=== PATIENT | male | born 1960 | race Caucasian/White ===

== ENCOUNTER 2017-02-07 17:22 | Emergency (ER) | payer OTHER ==
[~2017-02-07] VITALS: Ht 177.8 cm; Wt 183.7 kg
[~2017-02-07 17:22] MED LIST: ASPI81TA2 PO; ATEN-41 PO; ATOR40TA68 PO; BACL10TA PO; CEPH-568 PO; CLON1TAB4 PO; FAMO40TA7 PO; HALO50CR2 TP; HYDR-1189 PO; HYDR25TA4 PO; LEVO88TA5 PO; LORA-259 PO; METH750T3 PO; PARO-41 PO; TRIA15CR2 TP; [UNRECOGNIZED DRUG - CODE] PO; [UNRECOGNIZED DRUG - CODE] TP
[2017-02-07 17:45] VITALS: BP_SYST 138
[2017-02-07 18:31] LABS: BASOPHILS # (AUTO) 0.1 K/uL (0.0-0.2); BASOPHILS % (AUTO) 0.5 % (0.0-2.0); EOSINOPHILS # (AUTO) 0.3 K/uL (0.0-0.4); EOSINOPHILS % (AUTO) 2.5 % (0.0-4.0); HEMOGLOBIN 12.1 g/dL (14.0-18.0); LYMPHOCYTES # (AUTO) 1.5 K/uL (1.0-5.5); MEAN CORPUSCULAR HEMOGLOBIN 27 pg (27-31); MEAN CORPUSCULAR HGB CONC 33 % (32-36); MEAN CORPUSCULAR VOLUME 81 fL (79.0-98.0); MONOCYTES # (AUTO) 0.9 K/uL (0.0-1.0); MONOCYTES % (AUTO) 8.1 % (1.7-9.3); NEUTROPHILS # (AUTO) 7.9 K/uL (1.8-7.7); NEUTROPHILS % (AUTO) 74.9 % (40.0-70.0); PLATELET COUNT (AUTO) 275 K/uL (130-430); RED BLOOD CELL COUNT(AUTO) 4.57 MIL/uL (4.2-6.2); RED CELL DISTRIBUTION WIDTH 17.3 % (9.0-15.0); WHITE BLOOD COUNT (AUTO) 10.8 K/uL (4.8-10.8)
[2017-02-07 18:49] LABS: CALCIUM 8.6 mg/dL (8.4-11.0); CREATININE 0.9 mg/dL (0.55-1.30); POTASSIUM 3.8 mmol/L (3.5-5.1)
[2017-02-07 18:53] LABS: PROTHROMBIN TIME 10.5 SECS (9.5-12.5)
[2017-02-07 18:54] LABS: ALBUMIN 2.9 g/dL (3.4-4.8); TOTAL BILIRUBIN 0.5 mg/dL (0.0-1.0)
[2017-02-07] MEDS ORDERED: PARO40TA45 PO (21:00)
[2017-02-07 21:15] VITALS: BP_SYST 130
== END 2017-02-07 21:15 | disposition home or self-care (01) ==
LOC: SED 17:22
DX: S83.91XA Sprain of unspecified site of right knee, initial encounter (principal); S90.32XA Contusion of left foot, initial encounter; M54.5 Low back pain; R03.0 Elevated blood-pressure reading, without diagnosis of hypertension; F41.9 Anxiety disorder, unspecified; Z88.1 Allergy status to other antibiotic agents; Z88.2 Allergy status to sulfonamides; Z79.899 Other long term (current) drug therapy; W10.8XXA Fall (on) (from) other stairs and steps, initial encounter; Y93.01 Activity, walking, marching and hiking; Y92.098 Other place in other non-institutional residence as the place of occurrence of the external cause; Y99.8 Other external cause status
CPT/HCPCS: 36415; 71010; 72110; 73560-TC; 80053; 83605; 84484; 85025; 85610-TC; 85730-TC; 87040-TC; 93005; 99285

== ENCOUNTER 2017-03-10 17:56 | Emergency (ER) | payer OTHER ==
[~2017-03-10] VITALS: Ht 180.3 cm; Wt 180.5 kg
[~2017-03-10 17:56] MED LIST changes: -CEPH-568 PO; -LORA-259 PO; -PARO-41 PO; +PARO40TA45 PO; -[UNRECOGNIZED DRUG - CODE] TP
--- NOTE | 2017-03-10 17:56 | NUR ---
Arrived via [facility] ambulance, initially, at 1715, he had 10/10 crushing non-provoked chest pain with radiation to bilat neck. He took NTG x 2 at home. He did not initailly have any relief. On arrival on EMS his BP was 70/30, he was responsive. By the time he arrived to ED his pain was improved to 2/10. Placed in room 8 . Placed on cardiac rehabilitation program director, blood pressure machine and pulse oximeter. To gown for exam. Side rails up. Report given to Melinda MOSS. Addendum: 03/10/17 at 1852 by OBDULIO Patient recieved ASA 162mg PO enroute to [facility].
[2017-03-10 18:00] VITALS: BP_SYST 114
[2017-03-10 18:33] LABS: BASOPHILS # (AUTO) 0.1 K/uL (0.0-0.2); BASOPHILS % (AUTO) 0.5 % (0.0-2.0); EOSINOPHILS # (AUTO) 0.1 K/uL (0.0-0.4); EOSINOPHILS % (AUTO) 0.7 % (0.0-4.0); HEMATOCRIT 44.1 % (36-54); HEMOGLOBIN 14.4 g/dL (14.0-18.0); LYMPHOCYTES # (AUTO) 4.3 K/uL (1.0-5.5); LYMPHOCYTES % (AUTO) 23.5 % (20.5-51.5); MEAN CORPUSCULAR HEMOGLOBIN 26 pg (27-31); MEAN CORPUSCULAR HGB CONC 33 % (32-36); MEAN CORPUSCULAR VOLUME 80 fL (79.0-98.0); MONOCYTES # (AUTO) 1.4 K/uL (0.0-1.0); MONOCYTES % (AUTO) 7.5 % (1.7-9.3); NEUTROPHILS # (AUTO) 12.5 K/uL (1.8-7.7); NEUTROPHILS % (AUTO) 67.8 % (40.0-70.0); PLATELET COUNT (AUTO) 346 K/uL (130-430); RED BLOOD CELL COUNT(AUTO) 5.54 MIL/uL (4.2-6.2); RED CELL DISTRIBUTION WIDTH 17.6 % (9.0-15.0); WHITE BLOOD COUNT (AUTO) 18.4 K/uL (4.8-10.8)
--- NOTE | 2017-03-10 18:34 | NUR ---
ER Dr. La at bedside examining patient.
[2017-03-10 18:45] LABS: CALCIUM 9.3 mg/dL (8.4-11.0); CREATININE 1.06 mg/dL (0.55-1.30); POTASSIUM 3.6 mmol/L (3.5-5.1)
[2017-03-10 18:49] LABS: ALBUMIN 3.2 g/dL (3.4-4.8); TOTAL BILIRUBIN 0.8 mg/dL (0.0-1.0)
[2017-03-10 18:55] LABS: INR 1.2 (0.80-1.20); PROTHROMBIN TIME 11.7 SECS (9.5-12.5)
--- NOTE | 2017-03-10 19:05 | NUR ---
Recieved report from Sunil MOSS. Will assume care at this time. Patient denies CP at this time. Respirations even and unlabored. Upon assessment BP 112/60; HR 74. IV Patent. Will continue to monitor.
--- NOTE | 2017-03-10 19:20 | NUR ---
Radiology at bedside for CXR.
[2017-03-10] MEDS: MORPHINE 2 MG/ML INJ. SYRINGE IVP ONE (20:05)
--- NOTE | 2017-03-10 20:15 | NUR ---
Patient responded adversly to administration of 2mg morphine IVP. Patient demonstrates bradycardia. C/O N/V. Respirations labored. Skin diaphoretic. Patient SpO2 97% on room air. Patient placed on 2L via nasal cannula. ED MD Zuniga made aware. At bedside assessing patient. 1mg Narcan IVP to be ordered.
[2017-03-10] MEDS: NALOXONE HCL 2 MG/2 ML SYR (NARCAN) IVP ONE (20:21)
[2017-03-10] MEDS ORDERED: NALOXONE HCL 2 MG/2 ML SYR ONE (20:21)
[2017-03-10] MEDS: NITROGLYCERIN LINGUAL 400 mCg/SPRAY TL ONE (20:30)
--- NOTE | 2017-03-10 20:30 | NUR ---
Patient responded well to narcan administration. No acute distress noted at this time. Respirations even and unlabored. Skin warm, dry and pink. Verbalizes no complaints at this time.
--- NOTE | 2017-03-10 22:30 | NUR ---
Patient resting quietly. Respirations even and unlabored. No signs of respiratory distress noted at this time. Denies CP. Verbalizes no complaints.
[2017-03-10 23:00] VITALS: BP_SYST 125
--- NOTE | 2017-03-10 23:00 | NUR ---
Patient to be transferred to [facility]. Is being transferred due to higher level of care. Receiving facility has accepting physician and available space. ER physician has signed transfer form. Patient or responsible libertarian has agreed to transfer and signed form. Patient belongings inventoried and will be sent with patient. Copy of nursing notes, lab reports, EKG, Physicians Orders and X-rays to be sent with patient. Report called to Chemo MOSS at receiving facility. Receiving physician is Dr. Mejia. [facility] ambulance service has been called for transfer. ETA to [facility] is 20 minutes.
== END 2017-03-10 23:00 | disposition short-term general hospital (02) ==
LOC: SED 17:56
DX: R07.89 Other chest pain (principal); R06.02 Shortness of breath; E11.9 Type 2 diabetes mellitus without complications; F41.9 Anxiety disorder, unspecified; Z86.79 Personal history of other diseases of the circulatory system; Z79.82 Long term (current) use of aspirin; Z79.899 Other long term (current) drug therapy; Z88.6 Allergy status to analgesic agent; Z88.2 Allergy status to sulfonamides
CPT/HCPCS: 36415; 71045; 80053; 83605; 83690; 83880; 84484; 85025; 85610; 85730; 87040; 93005; 96374; 96375; 99285; J2270; J2310

== ENCOUNTER 2017-12-03 10:38 | Emergency (ER) | payer OTHER ==
[~2017-12-03] VITALS: Ht 180.3 cm; Wt 158.8 kg
[~2017-12-03 10:38] MED LIST changes: +ASPI-1155 PO; -ASPI81TA2 PO; -CLON1TAB4 PO; +CLON1TAB5 PO; +PARO40TA PO; -PARO40TA45 PO
[2017-12-03 10:52] VITALS: BP_SYST 157
[2017-12-03 11:24] VITALS: BP_SYST 140
== END 2017-12-03 11:24 ==
LOC: SED 10:38
DX: S50.811A Abrasion of right forearm, initial encounter (principal); E11.9 Type 2 diabetes mellitus without complications; F32.9 Major depressive disorder, single episode, unspecified; F95.2 Tourette's disorder; Z88.2 Allergy status to sulfonamides; Z88.6 Allergy status to analgesic agent; Z79.82 Long term (current) use of aspirin; Y35.893A Legal intervention involving other specified means, suspect injured, initial encounter; Y93.89 Activity, other specified; Y92.481 Parking lot as the place of occurrence of the external cause; Y99.8 Other external cause status
CPT/HCPCS: 99283

== ENCOUNTER 2018-03-07 12:00 | Emergency (ER) | payer OTHER ==
[~2018-03-07] VITALS: Ht 180.3 cm; Wt 160.1 kg
--- NOTE | 2018-03-07 12:04 | NUR ---
Pt wheeled to bed 7
[2018-03-07 12:05] VITALS: BP_SYST 107
--- NOTE | 2018-03-07 12:15 | NUR ---
Patient arrived via electric wheelchair, AAOx4. Patient c/c of lower extremity laceration. Patient has diffuse scabs to lower legs, darkened pink skin, dry, scaling, scant amount of bleeding to left lower extremity. Patient states he was at members services at [place], per patient "MD refused to see me." He has history of cellulitis, for years, with history of MRSA. Patient denies SOB, CP, nausea, vomiting, diarrhea, or dizziness.
--- NOTE | 2018-03-07 12:20 | NUR ---
ER at bedside examining patient.
[2018-03-07] MEDS ORDERED: NEOMY SULF/BACITRAC ZN/POLY 28 GM OINT..GM. TP ONE (12:30)
[2018-03-07] MEDS ORDERED: BACITRACIN 1 GM OINT TP ONE (12:59)
--- NOTE | 2018-03-07 13:09 | NUR ---
Patient given written and verbal discharge instructions and verbalizes understanding. ER MD discussed with patient the results and treatment provided. Patient in stable condition. ID arm band removed. Rx of Mupirocin 2% given. Patient educated on pain management and to follow up with PMD. Pain Scale 0/10. Opportunity for questions provided and answered. Medication side effect fact sheet provided.
[2018-03-07 13:10] VITALS: BP_SYST 133
== END 2018-03-07 13:10 | disposition home or self-care (01) ==
LOC: SED 12:00
DX: L03.116 Cellulitis of left lower limb (principal); L03.115 Cellulitis of right lower limb; F41.9 Anxiety disorder, unspecified; F32.9 Major depressive disorder, single episode, unspecified; E78.00 Pure hypercholesterolemia, unspecified; E11.9 Type 2 diabetes mellitus without complications; Z86.79 Personal history of other diseases of the circulatory system; Z88.2 Allergy status to sulfonamides; Z88.6 Allergy status to analgesic agent; Z79.82 Long term (current) use of aspirin; Z79.899 Other long term (current) drug therapy
CPT/HCPCS: 99283

== ENCOUNTER 2018-11-20 12:29 | Emergency (ER) | payer OTHER ==
[~2018-11-20] VITALS: Ht 180.3 cm; Wt 158.8 kg
[~2018-11-20 12:29] MED LIST changes: +CLON1TAB12 PO; -CLON1TAB5 PO
[2018-11-20 12:30] VITALS: BP_SYST 113
--- NOTE | 2018-11-20 12:30 | NUR ---
BROUGHT IN BY [facility] AND PET TEAM. PT IS PLACED ON A 5150 BY PET TEAM. PLACED IN ROOM #5 AND TRIAGED. PT IS COOPERATIVE AT THIS TIME WITH STAFF. PER , PT THREATENED TO KILL HIMSELF AND KILL THE AUTOMOTIVE FINANCE MANAGER.
--- NOTE | 2018-11-20 12:40 | NUR ---
pt reports not wanting to hurt himself. Pt continues to state the he does not know why he was brought to the hospital. Pt did try to commit suicide five years ago by taking "200mg" of norco, and states the he regret doing that immediately. Will continue to closely monitor.
--- NOTE | 2018-11-20 12:45 | NUR ---
Pt is resting in bed. PET team is still at the bedside.
--- NOTE | 2018-11-20 13:00 | NUR ---
Pt is awake and resting quietly in bed.
--- NOTE | 2018-11-20 13:15 | NUR ---
pt is awake and resting in bed.
[2018-11-20 13:28] LABS: BASOPHILS # (AUTO) 0.1 K/uL (0.0-0.2); BASOPHILS % (AUTO) 0.7 % (0.0-2.0); EOSINOPHILS # (AUTO) 0.1 K/uL (0.0-0.4); EOSINOPHILS % (AUTO) 1.1 % (0.0-4.0); HEMATOCRIT 44.1 % (36-54); HEMOGLOBIN 14.9 g/dL (14.0-18.0); LYMPHOCYTES # (AUTO) 1.6 K/uL (1.0-5.5); LYMPHOCYTES % (AUTO) 13.5 % (20.5-51.5); MEAN CORPUSCULAR HEMOGLOBIN 28 pg (27-31); MEAN CORPUSCULAR HGB CONC 34 % (32-36); MEAN CORPUSCULAR VOLUME 83 fL (79.0-98.0); MONOCYTES # (AUTO) 0.8 K/uL (0.0-1.0); MONOCYTES % (AUTO) 7.1 % (1.7-9.3); NEUTROPHILS # (AUTO) 9.2 K/uL (1.8-7.7); NEUTROPHILS % (AUTO) 77.6 % (40.0-70.0); PLATELET COUNT (AUTO) 269 K/uL (130-430); RED BLOOD CELL COUNT(AUTO) 5.32 MIL/uL (4.2-6.2); RED CELL DISTRIBUTION WIDTH 17.6 % (9.0-15.0); WHITE BLOOD COUNT (AUTO) 11.8 K/uL (4.8-10.8)
--- NOTE | 2018-11-20 13:30 | NUR ---
pt is awake and resting comfortably in bed.
[2018-11-20 13:31] LABS: ANION GAP 13 (5-15); CHLORIDE 102 mmol/L (98-107); CREATININE 1.05 mg/dL (0.55-1.30); GFR AFRICAN AMERICAN 93 mL/min (>90); GLUCOSE 131 mg/dL (70-99); POTASSIUM 3.9 mmol/L (3.5-5.1); SODIUM SERUM 143 mmol/L (136-145); UREA NITROGEN, BLOOD 20 mg/dL (8-21)
[2018-11-20 13:35] LABS: ALANINE AMINOTRANSFERASE 18 U/L (12-78); ALBUMIN 3.1 g/dL (3.4-4.8); ASPARTATE AMINOTRANSFERASE 22 U/L (10-37); TOTAL BILIRUBIN 1.1 mg/dL (0.0-1.0)
[2018-11-20 13:36] LABS: ALCOHOL, BLOOD < 3 mg/dL (<10)
--- NOTE | 2018-11-20 13:45 | NUR ---
Spoke with the pt. Continues to state that he is not activlely suicidal
--- NOTE | 2018-11-20 14:00 | NUR ---
pt is resting in bed.
--- NOTE | 2018-11-20 14:15 | NUR ---
pt is sitting up in his gurney.
--- NOTE | 2018-11-20 14:29 | NUR ---
dr. christianson, [facility], paging back to speak to dr. luna regarding pt status.
--- NOTE | 2018-11-20 14:30 | NUR ---
pt continues to sit up in his gurney.
--- NOTE | 2018-11-20 14:45 | NUR ---
pt is awake. Pt does not feel suicidal at the moment
--- NOTE | 2018-11-20 15:00 | NUR ---
pt is sitting up in [facility].
--- NOTE | 2018-11-20 15:15 | NUR ---
PT is having lunch.
--- NOTE | 2018-11-20 15:27 | NUR ---
RECEIVED LUNCH TRAY, PT VERY THANKFUL FOR FOOD.
--- NOTE | 2018-11-20 15:30 | NUR ---
pt is awake. Pt is behaving pleasantly
--- NOTE | 2018-11-20 15:45 | NUR ---
pt is sitting in his gurupper tract
--- NOTE | 2018-11-20 15:59 | NUR ---
FAXED OVER PAPERWORK FOR PLACEMENT: NERI MELENDEZ [facility] JULIA TORIBIO AWAITING CALL BACKS FOR PLACEMENT
--- NOTE | 2018-11-20 16:00 | NUR ---
pt is resting in bed. 1:1 sitter at the bedside.
--- NOTE | 2018-11-20 16:15 | NUR ---
pt continues to rest in bed. 1:1 sitter at the bedside
--- NOTE | 2018-11-20 16:30 | NUR ---
pt is resting in bed. 1:1 sitter at the bedside
--- NOTE | 2018-11-20 16:45 | NUR ---
pt is awake and sitting up in bed. 1:1 sitter at the bedside
--- NOTE | 2018-11-20 17:00 | NUR ---
Cleansed pt BLE with NS. Foam dressing applied. Pt tolerated well.
--- NOTE | 2018-11-20 17:15 | NUR ---
pt is resting in bed. 1:1 sitter at the bedside.
[2018-11-20 17:23] LABS: BILIRUBIN,URINE NEGATIVE (NEGATIVE); BLOOD, URINE 2+ (NEGATIVE); CLARITY/URINE HAZY (CLEAR); COLOR,URINE YELLOW (YELLOW); GLUCOSE,URINE NEGATIVE (NEGATIVE); KETONES,URINE NEGATIVE (NEGATIVE); LEUKOCYTE ESTERASE ,URINE TRACE (NEGATIVE); NITRITE, URINE NEGATIVE (NEGATIVE); PH,URINE 5.5 (5.0-8.0); PROTEIN URINE 1+ (NEGATIVE)
--- NOTE | 2018-11-20 17:30 | NUR ---
pt is sitting up in the gurney. 1:1 sitter at the bedside.
[2018-11-20 17:33] LABS: BACTERIA,URINE FEW /HPF (None Seen)
[2018-11-20 17:34] LABS: MUCUS,URINE 1+ /LPF (None Seen)
[2018-11-20 17:35] LABS: COARSE GRANULAR CASTS,URINE 0-10 /LPF (None Seen)
--- NOTE | 2018-11-20 17:45 | NUR ---
pt is sitting up in bed. 1:1 sitter is at the bedside.
[2018-11-20 17:51] LABS: BARBITURATE, URINE NEGATIVE (NEG <=200); BENZODIAZEPINE, URINE NEGATIVE (NEG <=150); CANNABINOID, URINE NEGATIVE (NEG <=50); COCAINE, URINE NEGATIVE (NEG <=150); METHAMPHETAMINES SCREEN,URINE NEGATIVE (NEG <=500); OPIATE, URINE NEGATIVE (NEG <=100); PHENCYCLIDINE SCREEN,URINE NEGATIVE (NEG <=25); UR TRICYCLIC ANTIDEPRESSANTS NEGATIVE (NEG <=300); URINE AMPHETAMINE NEGATIVE (NEG <=500); URINE METHADONE NEGATIVE (NEG <=200); URINE OXYCODONE SCREEN NEGATIVE (NEG <=100); URINE PROPOXYPHENE SCREEN NEGATIVE (NEG <=300)
--- NOTE | 2018-11-20 18:00 | NUR ---
pt is resting in bed. 1:1 sitter at the bedside.
--- NOTE | 2018-11-20 18:02 | NUR ---
PLACEMENT NOTE [facility] ACCEPTING: DR. LAY REPORT: [phone] RM: 62B SPOKE TO NESHA BACK SET UP TRANSPORT
--- NOTE | 2018-11-20 18:15 | NUR ---
pt is awake and resting in bed. 1:1 sitter at the bedside.
--- NOTE | 2018-11-20 18:30 | NUR ---
[facility] currently picking up the pt. Report given paramedics. Original 5150 hold included in the summary packet.
--- NOTE | 2018-11-20 18:30 | NUR ---
report given to Estela from [facility]. Pt will be going to room 29-A. Pt is aware and is agreeable to the transfer.
[2018-11-20 18:43] VITALS: BP_SYST 126
--- NOTE | 2018-11-20 18:45 | NUR ---
Patient to be transferred to [facility]. Is being transferred to a psyiatric facility. Receiving facility has accepting physician and available space. Acceptng delmi be Dr. Carmona. ER physician has signed transfer form. Patient or responsible libertarian has agreed to transfer and signed form. Patient belongings inventoried and will be sent with patient. Copy of nursing notes, lab reports, EKG, Physicians Orders and X-rays to be sent with patient. Report called to Estela MOSS at receiving facility. Receiving physician is Dr. Carmona.
[2018-11-21 15:16] LABS: CHOLESTEROL 145 mg/dL (<200); HDL CHOLESTEROL 35 mg/dL (>45); LDL CHOLESTEROL 84 mg/dL (<100); TRIGLYCERIDES 127 mg/dL (30-150)
== END 2018-11-20 18:45 ==
LOC: SED 12:29
DX: R45.851 Suicidal ideations (principal); F32.9 Major depressive disorder, single episode, unspecified; F41.9 Anxiety disorder, unspecified; E11.9 Type 2 diabetes mellitus without complications; E78.00 Pure hypercholesterolemia, unspecified; Z86.79 Personal history of other diseases of the circulatory system; Z88.6 Allergy status to analgesic agent; Z88.2 Allergy status to sulfonamides; Z79.82 Long term (current) use of aspirin; Z79.899 Other long term (current) drug therapy
CPT/HCPCS: 36415; 80053; 80061; 80307; 81000; 83036; 85025; 87086; 99285; G0482

== ENCOUNTER 2018-11-21 15:02 | Outpatient (CLI) | payer OTHER | END 2018-11-21 20:47 | disposition home or self-care (01) | LOC: SLB 15:02 | PROVIDERS: ATTEND Psychiatry & Neurology Psychiatry | DX: Z00.00 Encounter for general adult medical examination without abnormal findings (principal) | CPT/HCPCS: 87081 ==